=== PATIENT | male | born 1960 | race Caucasian/White ===

== ENCOUNTER → 2017-03-19 | Outpatient (CLI) | payer OTHER ==
[~2017-03-19] MED LIST: GADOBUTROL 10 ML VIAL IVP ONE
== END ==
LOC: FIMAGING 10:24
PROVIDERS: ATTEND Urology
DX: C61 Malignant neoplasm of prostate (principal)
CPT/HCPCS: A9585

== ENCOUNTER 2017-04-19 05:24 | Inpatient (IN) | payer OTHER ==
[2017-04-19] MEDS ORDERED: LIDOCAINE 1% 2 ML INJ ONE (05:51)
[2017-04-19] MEDS ORDERED: LIDOCAINE 1% 2 ML INJ ID PRN (06:44)
[2017-04-19] MEDS ORDERED: LR 1,000 ML IV ONE (06:44)
[2017-04-19 06:56] LABS: ANION GAP 11 mEq/L (8-16); CALCIUM 9.9 mg/dL (8.5-10.4); CARBON DIOXIDE 25 mEq/l (22-31); CHLORIDE 106 mEq/L (97-110); GLOMERULAR FILTRATION RATE > 60; GLUCOSE 74 mg/dL (70-100); POTASSIUM 4.2 mEq/L (3.5-5.2); SODIUM 142 mEq/L (134-144)
[2017-04-19] MEDS ORDERED: MIDAZOLAM 2 MG/2 ML VIAL IVP ONE (07:02)
[2017-04-19] MEDS ORDERED: levOFLOXACIN 500 MG/DEXTROSE/100 ML BAG IV ONE (07:08)
[2017-04-19] MEDS ORDERED: PROPOFOL 200 MG/20 ML VIAL ONE (07:11)
[2017-04-19] MEDS ORDERED: fentaNYL 100 MCG/2 ML INJ ONE ×3 (07:11→12:23)
[2017-04-19] MEDS ORDERED: LIDOCAINE 2% 5 ML SDV ONE (07:11)
[2017-04-19] MEDS ORDERED: DEXAMETHASONE 4 MG/ML VIAL ONE (07:11)
[2017-04-19] MEDS ORDERED: ROCURONIUM 100 MG/10 ML VIAL ONE (07:11)
--- NOTE | 2017-04-19 07:19 | PDHPUP ---
History & Physical Update H&P update statement: This history and physical update is based on an assessment of the patient which was completed after admission or registration (within 24 hours), but prior to the surgery/procedure. H&P update: H&P reviewed & patient examined, no change in patient's condition since H&P completed
--- NOTE | 2017-04-19 07:21 | PDANEPAE ---
ANE History of Present Illness prostate ANE Past Medical History - Cardiovascular History Hx Hypertension: Yes Hx Arrhythmias: No Hx Chest Pain: No Hx Coronary Artery / Peripheral Vascular Disease: Yes Hx CHF / Valvular Disease: No Hx Palpitations: No - Pulmonary History Hx COPD: No Hx Asthma/Reactive Airway Disease: No Hx Recent Upper Respiratory Infection: No Hx Oxygen in Use at Home: No - Neurologic History Hx Cerebrovascular Accident: No Hx Seizures: No Hx Dementia: No - Endocrine History Hx Diabetes: No - Renal History Hx Renal Disorders: No - Liver History Hx Hepatic Disorders: No - Neurological & Psychiatric Hx Hx Neurological and Psychiatric Disorders: No - Cancer History Hx Cancer: Yes - Congenital Disorder History Hx Congenital Disorders: No - GI History Hx Gastrointestinal Disorders: No - Chronic Pain History Chronic Pain: No ANE Review of Systems - Exercise capacity METS (RN): 4 METS ANE Patient History - Allergies Allergies/Adverse Reactions: hydrochlorothiazide Allergy (Severe, Verified 04/13/17 12:13) SOB, HIVES hydralazine Allergy (Verified 04/13/17 12:13) Other-Enter Comments - Home Medications Home Medications: Multivitamins [Tab-A-Lucille] 1 each PO DAILY 05/16/13 [Last Taken 04/12/17 10:00] - NPO status NPO Since - Liquids (Date): 04/18/17 NPO Since - Liquids (Time): 21:00 NPO Since - Solids (Date): 04/18/17 NPO Since - Solids (Time): 20:00 - Smoking Hx Smoking Status: Never smoked BI Labs/Vital Signs - Labs Result Diagrams: 04/19/17 06:25 - Vital Signs Blood Pressure: 144/86 Heart Rate: 54 Respiratory Rate: 16 O2 Sat (%): 96 Height: 172.72 cm Weight: 77.111 kg ANE Physical Exam - Airway Mallampati Score: Class 2 Mouth exam: normal dental/mouth exam - Pulmonary Pulmonary: no respiratory distress - Cardiovascular Cardiovascular: regular rate and rhythym - ASA Status ASA Status: II ANE Anesthesia Plan Anesthesia Plan: general endotracheal anesthesia
[2017-04-19] MEDS ORDERED: levOFLOXACIN 500 MG/DEXTROSE 100 ML IV ONE (07:30)
[2017-04-19 07:37] LABS: PROTIME(PATIENT) 13.1 SEC (12.0-15.0)
[2017-04-19 07:38] LABS: APTT 26.7 SEC (23.0-38.0)
[2017-04-19] MEDS ORDERED: BUPIVACAINE/EPI 0.25% 30 ML SDV ONE (07:47)
[2017-04-19] MEDS ORDERED: GLYCOPYRROLATE 0.2 MG/1 ML VIAL ONE ×2 (08:10→08:12)
[2017-04-19] MEDS ORDERED: epHEDrine SULFATE 10 MG/ML SYR ONE (08:11)
[2017-04-19] MEDS ORDERED: ROCURONIUM 50 MG/5 ML VIAL ONE (08:49)
[2017-04-19] MEDS ORDERED: THROMBIN(HUM PLAS)/FIBRINOG/CA 5 ML VIAL TP ONE (10:16)
[2017-04-19] MEDS ORDERED: ONDANSETRON 4 MG/2 ML VIAL ONE (10:23)
[2017-04-19] MEDS ORDERED: ONDANSETRON 4 MG/2 ML VIAL IVP PRN (10:24)
[2017-04-19] MEDS ORDERED: MEPERIDINE 25 MG/ML SYR IVP PRN (10:24)
[2017-04-19] MEDS ORDERED: NALOXONE HCL 0.4 MG/ML INJ IVP PRN (10:24)
[2017-04-19] MEDS ORDERED: LR 500 ML IV PRN (10:24)
[2017-04-19] MEDS ORDERED: ALBUTEROL 3 ML DEYVIAL IH PRN (10:24)
[2017-04-19] MEDS ORDERED: SUGAMMADEX SODIUM 200 MG/2 ML VIAL IVP ONE (10:56)
[2017-04-19] MEDS ORDERED: HYDROmorphONE/DILAUDID 2 MG/ML INJ ONE (11:24)
--- NOTE | 2017-04-19 11:43 | POSTANESTH ---
Post Anesthetic Evaluation Cardiovascular Status: Normal, Stable Respiratory Status: Normal, Stable Level of Consciousness/Mental Status: Can Participate in Eval Pain Control: Adequate, Prn Tx Ordered Nausea/Vomiting Control: Adequate, Prn Tx Ordered Complications Possibly Related to Anesthesia: None Noted
[2017-04-19] MEDS: fentaNYL 100 MCG/2 ML INJ IVP PRN ×4 (11:56→12:40)
--- NOTE | 2017-04-19 12:09 | POSTOPPROG ---
Post Op Note Date of Operation: 04/19/17 Surgeon: Milo Lan Spot Checker: Nicolette enamorado Anesthesia: GET(General Endotracheal) Pre-op Diagnosis: prostate cancer Post-op Diagnosis: same Indication: as above Procedure: Robotic radical retropubic prostatectomy Findings: bilat pelvic pymph nodes also dissected Inf/Abcess present in the surg proc area at time of surgery?: No Depth: Organ Space EBL: 50-100 Total fluids administered: see rec Complications: none Drains: Sony Contreras
[2017-04-19] MEDS: ACETAMINOPHEN 650 MG/20.3 ML UDCUP PO SCH ×3 (15:01→21:57)
[2017-04-19] MEDS ORDERED: DOCUSATE SODIUM 100 MG CAP PO SCH ×2 (20:15→21:00)
[2017-04-19] MEDS ORDERED: LORazepam 2 MG/ML INJ IVP PRN (20:15)
[2017-04-19] MEDS ORDERED: DOCUSATE SODIUM 100 MG CAP PO PRN (20:15)
[2017-04-19] MEDS: KETOROLAC 15 MG/1 ML SDV IVP SCH (21:56)
[2017-04-19] MEDS: HEPARIN 5,000 UNIT/0.5 ML SYR SC SCH (21:57)
--- NOTE | 2017-04-19 22:13 | GOP ---
[f rep st] OPERATIVE REPORT DATE OF OPERATION: 04/19/2017 SURGEON: Milo Lan MD [employer] MANAGER: Chio Albarado CFA. PREOPERATIVE DIAGNOSIS: Prostate cancer. POSTOPERATIVE DIAGNOSIS: Prostate cancer - Cowarts 3 + 3 and 9 cores. All of the cores on the left and 2 cores on the right. PROCEDURE PERFORMED: Robotic assisted radical retropubic prostatectomy with bilateral pelvic lymph node dissection. FINDINGS: SPECIMENS: Prostate, seminal vesicles sent to pathology for analysis, and left and right pelvic lymph node packets sent to pathology for analysis. ESTIMATED BLOOD LOSS: 100 ml COMPLICATIONS: None. URINE OUTPUT: Unrecorded. OPERATIVE INDICATIONS: The patient is a very pleasant, 56-year-old male with high-volume Cowarts 6 disease, and a palpable nodule. After a long discussion of the risks, benefits, and alternatives, he has consented for the above procedure and is brought to the operating room for this. DESCRIPTION OF PROCEDURE: The patient was identified by name, medical record number and wrist band. He was brought to the operating room, placed on the table, prepped and draped in the standard surgical fashion. He was placed in a low lithotomy position, meticulously prepped and padded. We made incision into the abdominal space with a Veress needle atraumatically, and a 12 mm port was placed. We then placed all of our other ports in the standard anatomic position under direct visual visualization. We docked the robot after placing the patient in 25 degrees head down, and we started dissection at the level of the pelvis. The colon was redundant, and we reflected the white line of Toldt away, as well as the connections of the colon to the pelvis, and mobilized the pelvis and got this out of the pelvis. The vas deferens was then followed down, and an incision was made approximately 2 cm anteriorly to the rectum on the perineum and dissected down through the perineum to identify the bilateral vas, the ampulla, and the bilateral seminal vesicles. These were mobilized with minimal cautery, and the Denonvilliers fascia was opened widely. Once this had been performed and hemostasis was excellent, we turned our attention to the bladder and took down the bladder anteriorly along the medial umbilical ligaments down the level of vas. Identified Mauro's ligaments, and identified the endopelvic fascia, cleaned this off, mobilized this, and then incised this. We took down the pedicles of the prostate, the pubic prostatic ligaments, and identified the notch between the urethra and the prostate. The 0 Vicryl suture was then used to tie off the dorsal venous complex. We turned our attention towards the prostate and mobilizing the bladder neck off the prostate. We identified the space between the bladder neck and the prostate, and dissected this away using sharp and blunt dissection. I identified all the fibers of the urethra anteriorly and posteriorly. We went laterally to the urethra first, and incised the urethral fibers, and brought the Wilder anteriorly to identify the posterior bladder and prostatic junction. Incised the posterior bladder neck down to the level of the vas. We incised through the Denonvilliers fascia on the posterior aspect of the prostate and the bladder, pulled the vas and seminal vesicles through this incision, and provided anterior and cephalad retraction on the prostate. We performed a partial nerve sparing on the left, and a complete nerve sparing on the right, and dissected down to the level of the urethra to mobilize the urethra completely. We then, once the nerve dissection had been performed, incised anteriorly taking the dorsal venous complex down off the urethral fibers, and incising the urethral fibers, as well as the rectal urethralis muscle. Once the prostate was passed off the surgical field, we used a V-lock suture to reconstruct the rectal urethralis muscle with the posterior bladder neck, and that approximated the bladder neck with the urethra. A running clockwise and counterclockwise Monocryl was used to reconstruct the bladder neck anteriorly and posteriorly, and the urethrovesical anastomosis was complete with approximately 20 sutures. We placed a fresh Wilder catheter and irrigated this, and no leak was noted. We then tied down our sutures and performed a pelvic lymph node dissection using the template of the Preston, the bifurcation of the iliac veins, the iliac arteries, the iliac vein, the pelvic sidewall, and the obturator nerve. These packets were sent off bilaterally and sent separately. Hemostasis was excellent at the end of the procedure. An excellent bundle sparing was performed, and robust bundle was noted prior to reconstructing the urethrovesical anastomosis. A LORI drain was then placed. Evicel was placed along sites of bleeding, and we placed the prostate in a bag, and brought this out through the 12 mm port cath site, and closed our other 12 mm port site with a fascial closure device. We then closed our prostate removal site with an 0 Vicryl, and irrigated copiously all the wounds. The skin was closed with a 4-0 Monocryl. Dermabond was applied and 0.25% Marcaine with epinephrine was applied. The Wilder catheter was secured. The LORI drain was sutured into place, and the patient was awakened from anesthesia, brought to the recovery in stable condition. /[id number]/MODL MTDD
[2017-04-20] MEDS: KETOROLAC 15 MG/1 ML SDV IVP SCH ×3 (01:03→12:11)
[2017-04-20] MEDS: ACETAMINOPHEN 650 MG/20.3 ML UDCUP PO SCH ×4 (02:20→15:15)
[2017-04-20 05:10] LABS: % IMMATURE GRANULYOCYTES 0.2 % (0.0-1.1); ABSOLUTE IMMATURE GRANULOCYTES 0.02 10^3/uL (0.00-0.10); ADD DIFF? NO; ADD MORPH? NO; ADD SCAN? NO; ATYPICAL LYMPHOCYTE FLAG 0 (0-99); FRAGMENT RBC FLAG 0 (0-99); HEMATOCRIT 40.3 % (40.0-51.0); LEFT SHIFT FLG 0 (0-99); LIPEMIA HEMOLYSIS FLAG 90 (0-99); MEAN CELL HEMOGLOBIN 32.9 pg (27.9-34.1); MEAN CELL HEMOGLOBIN CONCENTR. 34.7 g/dL (32.4-36.7); MEAN CELL VOLUME 94.6 fL (81.5-99.8); MEAN PLATELET VOLUME 11.7 fL (8.7-11.7); PLATELET CLUMPS FLAG 0 (0-99); PLATELET COUNT 135 10^3/uL (150-400); RED BLOOD CELL COUNT 4.26 10^6/uL (4.40-6.38); RED CELL DISTRIBUTION WIDTH 13.4 % (11.5-15.2)
[2017-04-20 05:29] LABS: ANION GAP 7 mEq/L (8-16); CALCIUM 9.1 mg/dL (8.5-10.4); CARBON DIOXIDE 24 mEq/l (22-31); CHLORIDE 105 mEq/L (97-110); GLOMERULAR FILTRATION RATE > 60; GLUCOSE 95 mg/dL (70-100); POTASSIUM 3.9 mEq/L (3.5-5.2); SODIUM 136 mEq/L (134-144)
[2017-04-20 08:45] VITALS: O2SAT 93
[2017-04-20] MEDS: HEPARIN 5,000 UNIT/0.5 ML SYR SC SCH (09:44)
--- NOTE | 2017-04-20 13:18 | SOAPPROG ---
SOAP Progress Note Assessment/Plan: Assessment: DOing well - await LORI creatinine level Plan:likely home today - all questions 04/20/17 13:17 Objective: Vital Signs Temp Pulse Resp BP Pulse Ox 37.2 C 46 L 14 143/84 H 93 04/20/17 08:43 04/20/17 08:43 04/20/17 08:43 04/20/17 08:43 04/20/17 08:43 Laboratory Results 04/20/17 04:46 04/20/17 04:46 04/19/17 04/20/17 04/21/17 05:59 05:59 05:59 Intake Total 1000 Output Total 1080 90 Balance -80 -90 PT 13.1 SEC (12.0-15.0) 04/19/17 06:25 INR 1.00 (0.83-1.16) 04/19/17 06:25 - Pending Discharge Pending Discharge Within 24 Hours: Yes Pending Discharge Within 48 Hours: No Pending Discharge Date: 04/21/17 Pending Discharge Time: 11:00 Physical Exam - Physical Exam EENT: PERRL/EOMI Neck: non-tender Respiratory: chest non-tender Cardiac/Chest: normal peripheral pulses Abdomen: normal bowel sounds Male Genitalia: normal genitalia Back: Normal inspection Skin: normal color Extremities: normal range of motion Neuro/Psych: no motor/sensory deficits ICD10 Worksheet Patient Problems: Problems Problem Status Onset Prostate cancer Acute Prostate cancer Acute - ICD10 Problem Qualifiers (1) Prostate cancer (2) Prostate cancer
[2017-04-20 16:24] VITALS: BP 118/78; PULSE 56; RESP 16; TEMP 98.6
--- NOTE | 2017-04-20 17:33 | PDDCSUM ---
Discharge Summary Discharge Summary: Take toradol as prescribed - script is at your regular pharmacy already - OK to take with tylenol 650 PO Q 6 hours ATC x 3 days OK to start 81 mg ASA starting on 04/21/17 - take daily from that point on You can shower with the diallo in -it is good to soap it up in the shower - no baths or hot tubs x 30 days - No heavy lifting x 30 days See me for incision check and discussion of diallo removal Call [phone] tomorrow for appt above -my staff will arrange this
[2017-04-21] MEDS ORDERED: NON-FORMULARY NEW DRUG (Multivitamins [Multivitamin (*)] 1 EACH) PO SCH (09:00)
[2017-04-21] MEDS ORDERED: MULTIVITAMINS 1 EACH TAB PO SCH (09:00)
== END 2017-04-20 18:49 | disposition home or self-care (01) | DRG 708 ==
LOC: FSGY 05:24 → F1N 12:19 → OBSVTOIN 12:19 → F1N 13:32
PROVIDERS: ADMIT Urology; ATTEND Urology
PROC: 0VT04ZZ Resection of Prostate, Percutaneous Endoscopic Approach (ICD-10-PCS; principal; 2017-04-19 07:15)
PROC: 8E0WXCZ Robotic Assisted Procedure of Trunk Region (ICD-10-PCS; principal; 2017-04-19 07:15)
PROC: 07BC0ZX Excision of Pelvis Lymphatic, Open Approach, Diagnostic (ICD-10-PCS; principal; 2017-04-19 07:15)
DX: C61 Malignant neoplasm of prostate (principal); N40.1 Benign prostatic hyperplasia with lower urinary tract symptoms; I10 Essential (primary) hypertension
CPT/HCPCS: J1100; J1170; J1885; J1956; J2060; J2250; J2405; J2704; J3010